=== PATIENT | female | born 1950 | race Caucasian/White ===

== ENCOUNTER 2021-03-14 06:45 | Inpatient (IN) | payer OTHER ==
[2021-03-14 07:17] VITALS: BMI 29.2
[2021-03-14] MEDS ORDERED: ACETAMINOPHEN 1000 MG/100 ML VIAL (NON FORMULARY) IVPB ONE (07:35)
[2021-03-14] MEDS ORDERED: ACETAMINOPHEN INJECTION 100 ML IVPB ONE (07:58)
[2021-03-14] MEDS ORDERED: morphine CARPU-JECT 2 MG/1 ML DISP.SYRIN IVPUSH ONE (08:06)
[2021-03-14] MEDS: SODIUM CHLORIDE 2,395 ML IV ONE ×2 (08:13→08:23)
[2021-03-14] MEDS ORDERED: morphine SULFATE 4 MG/ML VIAL ONE (08:17)
[2021-03-14 08:21] LABS: BASO % 0.3 % (0-2.0); EOS % 0.1 % (0-4.5); HEMATOCRIT 36.1 % (32.4-45.2); HEMOGLOBIN 12.3 GM/dL (10.7-15.3); LYMPH % 19.8 % (8-40); MCHC 34.1 g/dl (32.0-36.0); MEAN CELL VOLUME 93.8 fl (80-96); MONO % 10.3 % (3.8-10.2); NEUT % 69.5 % (42.8-82.8); PLATELET COUNT 278 K/MM3 (134-434); RBC 3.85 M/mm3 (3.60-5.2); RDW 15.2 % (11.6-15.6); WHITE BLOOD COUNT 7.7 K/mm3 (4.0-10.0)
[2021-03-14] MEDS ORDERED: SODIUM CHLORIDE 1,000 ML IV STA (08:21)
[2021-03-14 08:31] LABS: INR 1.19 (0.83-1.09); PROTHROMBIN TIME (PATIENT) 14.6 SEC (9.7-13.0)
[2021-03-14 08:34] LABS: ACTIVATED PTT 25.3 SECONDS (25.2-36.5)
[2021-03-14 08:45] LABS: ALBUMIN 2.7 g/dl (3.4-5.0); BLOOD UREA NITROGEN 17.5 mg/dL (7-18); CALCIUM 8.5 mg/dL (8.5-10.1)
[2021-03-14 08:49] LABS: CREATININE 0.6 mg/dL (0.55-1.3)
[2021-03-14 08:51] LABS: TOT PROT 10.4 g/dl (6.4-8.2)
[2021-03-14] MEDS ORDERED: MORPHINE SULFATE 2 MG/ML VIAL IVPUSH PRN (14:07)
[2021-03-14] MEDS: ACETAMINOPHEN 1000 MG/100 ML VIAL (NON FORMULARY) IVPB PRN ×2 (16:18→22:31)
[2021-03-14] MEDS ORDERED: AZTREONAM 1 GM in DEXTROSE 5%-WATER - 50 ML IVPB ONE (23:45)
[2021-03-15] MEDS ORDERED: AZTREONAM 1 GM VIAL (RESTRICTED TO ID) ONE ×3 (00:32→17:14)
[2021-03-15] MEDS ORDERED: DEXTROSE 5%-WATER - 50 ML IVPB ONE ×3 (00:33→17:14)
[2021-03-15 07:09] LABS: BASO % 0.4 % (0-2.0); EOS % 0.6 % (0-4.5); HEMATOCRIT 32.7 % (32.4-45.2); HEMOGLOBIN 11.1 GM/dL (10.7-15.3); LYMPH % 24.8 % (8-40); MCH 32.2 pg (25.7-33.7); MCHC 34.1 g/dl (32.0-36.0); MEAN CELL VOLUME 94.4 fl (80-96); MEAN PLT VOLUME 8.6 fl (7.5-11.1); MONO % 9.3 % (3.8-10.2); NEUT % 64.9 % (42.8-82.8); PLATELET COUNT 213 K/MM3 (134-434); RBC 3.46 M/mm3 (3.60-5.2); RDW 14.9 % (11.6-15.6); WHITE BLOOD COUNT 4.8 K/mm3 (4.0-10.0)
[2021-03-15 07:45] LABS: ALBUMIN 2.5 g/dl (3.4-5.0); BLOOD UREA NITROGEN 16.8 mg/dL (7-18); CALCIUM 7.9 mg/dL (8.5-10.1); MAGNESIUM 1.8 mg/dL (1.8-2.4)
[2021-03-15 07:46] LABS: URIC ACID 3.9 mg/dL (2.6-7.2)
[2021-03-15 07:49] LABS: BILIRUBIN,TOTAL 0.5 mg/dL (0.2-1); CREATININE 0.4 mg/dL (0.55-1.3); PHOSPHOROUS 3.4 mg/dL (2.5-4.9); TOT PROT 8.5 g/dl (6.4-8.2)
[2021-03-15] MEDS: ACETAMINOPHEN 1000 MG/100 ML VIAL (NON FORMULARY) IVPB PRN (09:13)
[2021-03-15] MEDS: ENOXAPARIN NA (PORCINE) 40 MG/0.4 ML DISP.SYRIN SQ SCH (09:13)
[2021-03-15] MEDS: LEVOTHYROXINE NA 112 MCG TABLET (FP) PO SCH (09:13)
[2021-03-15] MEDS: AZTREONAM 1 GM in DEXTROSE 5%-WATER - 50 ML IVPB SCH ×2 (12:20→17:17)
[2021-03-15] MEDS: metoPROLOL SUCCINATE 25 MG TAB.SR.24H (FP) PO SCH (14:20)
[2021-03-15] MEDS: ASPIRIN COATED 81 MG TABLET.EC PO SCH (14:20)
[2021-03-15] MEDS: morphine SULFATE 4 MG/ML VIAL IVPUSH PRN ×2 (17:18→21:35)
[2021-03-15] MEDS: ROSUVASTATIN CA 20 MG TABLET (FP) PO SCH (21:03)
[2021-03-16] MEDS ORDERED: ACETAMINOPHEN 325 MG TABLET (FP) PO ONE (01:06)
[2021-03-16] MEDS ORDERED: DEXTROSE 5%-WATER - 50 ML IVPB ONE ×2 (01:12→18:18)
[2021-03-16] MEDS ORDERED: AZTREONAM 1 GM VIAL (RESTRICTED TO ID) ONE ×2 (01:12→18:17)
[2021-03-16] MEDS: AZTREONAM 1 GM in DEXTROSE 5%-WATER - 50 ML IVPB SCH ×3 (01:19→18:20)
[2021-03-16] MEDS: LEVOTHYROXINE NA 112 MCG TABLET (FP) PO SCH (05:59)
[2021-03-16 07:31] LABS: HEMATOCRIT 32.1 % (32.4-45.2); HEMOGLOBIN 10.9 GM/dL (10.7-15.3); MEAN CELL VOLUME 94.1 fl (80-96); MEAN PLT VOLUME 8.1 fl (7.5-11.1); PLATELET COUNT 194 K/MM3 (134-434); RBC 3.41 M/mm3 (3.60-5.2); RDW 14.8 % (11.6-15.6)
[2021-03-16 07:58] LABS: CALCIUM 7.6 mg/dL (8.5-10.1)
[2021-03-16 07:59] LABS: ALBUMIN 2.4 g/dl (3.4-5.0); BLOOD UREA NITROGEN 18.6 mg/dL (7-18)
[2021-03-16 08:02] LABS: CREATININE 0.5 mg/dL (0.55-1.3)
[2021-03-16 08:03] LABS: BILIRUBIN,TOTAL 0.3 mg/dL (0.2-1); TOT PROT 8.4 g/dl (6.4-8.2)
[2021-03-16 08:07] LABS: MYOGLOBIN SERUM 22 ng/mL (25-58)
[2021-03-16] MEDS: ASPIRIN COATED 81 MG TABLET.EC PO SCH (10:15)
[2021-03-16] MEDS: morphine SULFATE 4 MG/ML VIAL IVPUSH PRN (10:15)
[2021-03-16] MEDS: metoPROLOL SUCCINATE 25 MG TAB.SR.24H (FP) PO SCH (10:15)
[2021-03-16] MEDS: ENOXAPARIN NA (PORCINE) 40 MG/0.4 ML DISP.SYRIN SQ SCH (10:42)
[2021-03-16] MEDS ORDERED: LIDOCAINE HCL 1%, 10 MG/ML (50 mL VIAL) SQ ONE (14:45)
[2021-03-16] MEDS ORDERED: methylPREDNISolone ACET (DEPO) 40 MG/1 ML VIAL IM ONE (15:00)
[2021-03-16] MEDS ORDERED: INDOMETHACIN 50 MG CAPSULE PO ONE (15:40)
[2021-03-16] MEDS: ROSUVASTATIN CA 20 MG TABLET (FP) PO SCH (21:14)
[2021-03-17] MEDS ORDERED: AZTREONAM 1 GM VIAL (RESTRICTED TO ID) ONE ×2 (00:10→09:12)
[2021-03-17] MEDS ORDERED: DEXTROSE 5%-WATER - 50 ML IVPB ONE ×2 (00:12→09:12)
[2021-03-17] MEDS: AZTREONAM 1 GM in DEXTROSE 5%-WATER - 50 ML IVPB SCH ×2 (01:28→09:30)
[2021-03-17] MEDS: LEVOTHYROXINE NA 112 MCG TABLET (FP) PO SCH (07:10)
[2021-03-17 07:38] LABS: ALBUMIN 2.7 g/dl (3.4-5.0); CALCIUM 8.5 mg/dL (8.5-10.1)
[2021-03-17 07:39] LABS: BLOOD UREA NITROGEN 13.3 mg/dL (7-18)
[2021-03-17 07:42] LABS: CREATININE 0.5 mg/dL (0.55-1.3)
[2021-03-17 07:43] LABS: BILIRUBIN,TOTAL 0.2 mg/dL (0.2-1); TOT PROT 9.5 g/dl (6.4-8.2)
[2021-03-17] MEDS: metoPROLOL SUCCINATE 25 MG TAB.SR.24H (FP) PO SCH (09:30)
[2021-03-17] MEDS: ASPIRIN COATED 81 MG TABLET.EC PO SCH (09:30)
[2021-03-17] MEDS: ENOXAPARIN NA (PORCINE) 40 MG/0.4 ML DISP.SYRIN SQ SCH (09:31)
[2021-03-17] MEDS: morphine SULFATE 4 MG/ML VIAL IVPUSH PRN (09:31)
[2021-03-17] MEDS ORDERED: REGADENOSON 0.4 MG/5 ML PRE-FILLED SYRINGE IVPUSH ONE (12:15)
[2021-03-17] MEDS: ROSUVASTATIN CA 20 MG TABLET (FP) PO SCH (22:28)
[2021-03-18 02:03] LABS: BODY FLUID MONOCYTE 6 %
[2021-03-18 02:12] LABS: CRYSTALS,SYNOVIAL FLUID NEGATIVE
[2021-03-18] MEDS: morphine SULFATE 4 MG/ML VIAL IVPUSH PRN ×2 (03:47→21:07)
[2021-03-18] MEDS: LEVOTHYROXINE NA 112 MCG TABLET (FP) PO SCH (07:17)
[2021-03-18] MEDS: ASPIRIN COATED 81 MG TABLET.EC PO SCH (10:37)
[2021-03-18] MEDS: ENOXAPARIN NA (PORCINE) 40 MG/0.4 ML DISP.SYRIN SQ SCH (10:37)
[2021-03-18] MEDS: metoPROLOL SUCCINATE 25 MG TAB.SR.24H (FP) PO SCH (10:37)
[2021-03-18] MEDS: ROSUVASTATIN CA 20 MG TABLET (FP) PO SCH (21:09)
[2021-03-19] MEDS: morphine SULFATE 4 MG/ML VIAL IVPUSH PRN ×4 (02:40→21:47)
[2021-03-19] MEDS: LEVOTHYROXINE NA 112 MCG TABLET (FP) PO SCH (06:37)
[2021-03-19 07:24] LABS: BASO % 0.4 % (0-2.0); EOS % 0.4 % (0-4.5); HEMATOCRIT 32.7 % (32.4-45.2); LYMPH % 31.7 % (8-40); MCH 32.1 pg (25.7-33.7); MCHC 33.7 g/dl (32.0-36.0); MEAN CELL VOLUME 95.5 fl (80-96); MEAN PLT VOLUME 8.8 fl (7.5-11.1); MONO % 9.6 % (3.8-10.2); NEUT % 57.9 % (42.8-82.8); PLATELET COUNT 266 K/MM3 (134-434); RBC 3.43 M/mm3 (3.60-5.2); RDW 15.4 % (11.6-15.6); WHITE BLOOD COUNT 7.8 K/mm3 (4.0-10.0)
[2021-03-19 07:34] LABS: ALBUMIN 2.5 g/dl (3.4-5.0)
[2021-03-19 07:36] LABS: CREATININE 0.4 mg/dL (0.55-1.3)
[2021-03-19 07:37] LABS: BILIRUBIN,TOTAL 0.7 mg/dL (0.2-1); TOT PROT 8.7 g/dl (6.4-8.2)
[2021-03-19] MEDS: ASPIRIN COATED 81 MG TABLET.EC PO SCH (11:06)
[2021-03-19] MEDS: ENOXAPARIN NA (PORCINE) 40 MG/0.4 ML DISP.SYRIN SQ SCH (11:06)
[2021-03-19] MEDS: metoPROLOL SUCCINATE 25 MG TAB.SR.24H (FP) PO SCH (11:06)
[2021-03-19] MEDS: ROSUVASTATIN CA 20 MG TABLET (FP) PO SCH (21:08)
[2021-03-20] MEDS: LEVOTHYROXINE NA 112 MCG TABLET (FP) PO SCH (06:19)
[2021-03-20 07:36] LABS: BASO % 0.5 % (0-2.0); EOS % 0.8 % (0-4.5); HEMATOCRIT 31.9 % (32.4-45.2); HEMOGLOBIN 10.7 GM/dL (10.7-15.3); LYMPH % 29.9 % (8-40); MCH 31.6 pg (25.7-33.7); MCHC 33.6 g/dl (32.0-36.0); MEAN PLT VOLUME 8.2 fl (7.5-11.1); MONO % 10.8 % (3.8-10.2); PLATELET COUNT 264 K/MM3 (134-434); RDW 14.9 % (11.6-15.6); WHITE BLOOD COUNT 6.9 K/mm3 (4.0-10.0)
[2021-03-20 07:51] LABS: BLOOD UREA NITROGEN 16.2 mg/dL (7-18); CALCIUM 8.2 mg/dL (8.5-10.1)
[2021-03-20 07:52] LABS: ALBUMIN 2.4 g/dl (3.4-5.0)
[2021-03-20 07:55] LABS: CREATININE 0.3 mg/dL (0.55-1.3)
[2021-03-20 07:56] LABS: BILIRUBIN,TOTAL 0.6 mg/dL (0.2-1); TOT PROT 8.4 g/dl (6.4-8.2)
[2021-03-20] MEDS: ASPIRIN COATED 81 MG TABLET.EC PO SCH (10:32)
[2021-03-20] MEDS: ENOXAPARIN NA (PORCINE) 40 MG/0.4 ML DISP.SYRIN SQ SCH (10:32)
[2021-03-20] MEDS: metoPROLOL SUCCINATE 25 MG TAB.SR.24H (FP) PO SCH (10:32)
[2021-03-20] MEDS: morphine SULFATE 4 MG/ML VIAL IVPUSH PRN ×2 (15:19→21:32)
[2021-03-20] MEDS: ROSUVASTATIN CA 20 MG TABLET (FP) PO SCH (21:31)
[2021-03-21] MEDS: MORPHINE SULFATE 2 MG/ML VIAL IVPUSH PRN ×3 (01:28→21:27)
[2021-03-21] MEDS: LEVOTHYROXINE NA 112 MCG TABLET (FP) PO SCH (06:05)
[2021-03-21] MEDS: metoPROLOL SUCCINATE 25 MG TAB.SR.24H (FP) PO SCH (09:35)
[2021-03-21] MEDS: ASPIRIN COATED 81 MG TABLET.EC PO SCH (09:35)
[2021-03-21] MEDS: ENOXAPARIN NA (PORCINE) 40 MG/0.4 ML DISP.SYRIN SQ SCH (09:36)
[2021-03-21] MEDS: ROSUVASTATIN CA 20 MG TABLET (FP) PO SCH (21:26)
[2021-03-22] MEDS: MORPHINE SULFATE 2 MG/ML VIAL IVPUSH PRN ×4 (02:35→22:42)
[2021-03-22] MEDS: LEVOTHYROXINE NA 112 MCG TABLET (FP) PO SCH (07:29)
[2021-03-22] MEDS: ENOXAPARIN NA (PORCINE) 40 MG/0.4 ML DISP.SYRIN SQ SCH (09:32)
[2021-03-22] MEDS: metoPROLOL SUCCINATE 25 MG TAB.SR.24H (FP) PO SCH (09:32)
[2021-03-22] MEDS: ASPIRIN COATED 81 MG TABLET.EC PO SCH (09:32)
[2021-03-22] MEDS: VANCOMYCIN 1 GRAM (PRE-DOCKED) 1,000 MG/250 ML BAG IVPB SCH (13:28)
[2021-03-22 15:46] LABS: BASO % 0.8 % (0-2.0); EOS % 0.7 % (0-4.5); HEMOGLOBIN 10.9 GM/dL (10.7-15.3); LYMPH % 23.6 % (8-40); MCH 31.6 pg (25.7-33.7); MCHC 33.2 g/dl (32.0-36.0); MEAN CELL VOLUME 95.1 fl (80-96); MEAN PLT VOLUME 8.3 fl (7.5-11.1); MONO % 9.1 % (3.8-10.2); NEUT % 65.8 % (42.8-82.8); PLATELET COUNT 326 K/MM3 (134-434); RBC 3.47 M/mm3 (3.60-5.2); RDW 15.1 % (11.6-15.6); WHITE BLOOD COUNT 7.5 K/mm3 (4.0-10.0)
[2021-03-22 16:03] LABS: BLOOD UREA NITROGEN 14.3 mg/dL (7-18); CALCIUM 8.4 mg/dL (8.5-10.1)
[2021-03-22 16:07] LABS: CREATININE 0.5 mg/dL (0.55-1.3)
[2021-03-22] MEDS ORDERED: AZTREONAM 1 GM VIAL (RESTRICTED TO ID) ONE (16:49)
[2021-03-22] MEDS ORDERED: DEXTROSE 5%-WATER - 50 ML IVPB ONE (16:49)
[2021-03-22] MEDS: AZTREONAM 1 GM in DEXTROSE 5%-WATER - 50 ML IVPB SCH (17:13)
[2021-03-22] MEDS: ROSUVASTATIN CA 20 MG TABLET (FP) PO SCH (21:09)
[2021-03-23] MEDS ORDERED: AZTREONAM 1 GM VIAL (RESTRICTED TO ID) ONE ×3 (00:40→16:56)
[2021-03-23] MEDS ORDERED: DEXTROSE 5%-WATER - 50 ML IVPB ONE ×3 (00:40→16:56)
[2021-03-23] MEDS: VANCOMYCIN 1 GRAM (PRE-DOCKED) 1,000 MG/250 ML BAG IVPB SCH ×2 (00:47→13:36)
[2021-03-23] MEDS: AZTREONAM 1 GM in DEXTROSE 5%-WATER - 50 ML IVPB SCH ×3 (01:06→17:12)
[2021-03-23] MEDS: LEVOTHYROXINE NA 112 MCG TABLET (FP) PO SCH (06:45)
[2021-03-23 07:16] LABS: BASO % 0.5 % (0-2.0); EOS % 0.5 % (0-4.5); HEMOGLOBIN 10.7 GM/dL (10.7-15.3); LYMPH % 27.7 % (8-40); MCH 31.7 pg (25.7-33.7); MCHC 33.3 g/dl (32.0-36.0); MEAN PLT VOLUME 8.2 fl (7.5-11.1); MONO % 12.6 % (3.8-10.2); NEUT % 58.7 % (42.8-82.8); PLATELET COUNT 343 K/MM3 (134-434); RBC 3.37 M/mm3 (3.60-5.2); RDW 15.2 % (11.6-15.6); WHITE BLOOD COUNT 7.5 K/mm3 (4.0-10.0)
[2021-03-23 07:38] LABS: CALCIUM 8.6 mg/dL (8.5-10.1)
[2021-03-23 07:39] LABS: BLOOD UREA NITROGEN 15.8 mg/dL (7-18)
[2021-03-23 07:41] LABS: CREATININE 0.4 mg/dL (0.55-1.3)
[2021-03-23] MEDS ORDERED: PT OWN MED DRAWER 7, Y5N ONE (09:38)
[2021-03-23] MEDS: metoPROLOL SUCCINATE 25 MG TAB.SR.24H (FP) PO SCH (10:06)
[2021-03-23] MEDS: MORPHINE SULFATE 2 MG/ML VIAL IVPUSH PRN ×3 (10:06→22:53)
[2021-03-23] MEDS: ASPIRIN COATED 81 MG TABLET.EC PO SCH (10:06)
[2021-03-23] MEDS: ENOXAPARIN NA (PORCINE) 40 MG/0.4 ML DISP.SYRIN SQ SCH (10:06)
[2021-03-23] MEDS: FAMOTIDINE 20 MG TABLET PO SCH (15:14)
[2021-03-23] MEDS: ROSUVASTATIN CA 20 MG TABLET (FP) PO SCH (23:00)
[2021-03-24] MEDS ORDERED: AZTREONAM 1 GM VIAL (RESTRICTED TO ID) ONE ×3 (01:13→17:12)
[2021-03-24] MEDS ORDERED: DEXTROSE 5%-WATER - 50 ML IVPB ONE ×3 (01:14→17:12)
[2021-03-24] MEDS: VANCOMYCIN 1 GRAM (PRE-DOCKED) 1,000 MG/250 ML BAG IVPB SCH ×2 (01:47→13:12)
[2021-03-24] MEDS: AZTREONAM 1 GM in DEXTROSE 5%-WATER - 50 ML IVPB SCH ×3 (01:48→17:23)
[2021-03-24] MEDS: LEVOTHYROXINE NA 112 MCG TABLET (FP) PO SCH (06:24)
[2021-03-24] MEDS: MORPHINE SULFATE 2 MG/ML VIAL IVPUSH PRN ×3 (06:24→23:16)
[2021-03-24 07:25] LABS: BASO % 0.6 % (0-2.0); EOS % 0.5 % (0-4.5); HEMATOCRIT 30.6 % (32.4-45.2); HEMOGLOBIN 10.6 GM/dL (10.7-15.3); LYMPH % 24.9 % (8-40); MCH 32.4 pg (25.7-33.7); MCHC 34.7 g/dl (32.0-36.0); MEAN CELL VOLUME 93.4 fl (80-96); MEAN PLT VOLUME 7.7 fl (7.5-11.1); PLATELET COUNT 332 K/MM3 (134-434); RBC 3.28 M/mm3 (3.60-5.2); RDW 15.1 % (11.6-15.6); WHITE BLOOD COUNT 6.7 K/mm3 (4.0-10.0)
[2021-03-24 07:41] LABS: BLOOD UREA NITROGEN 15.4 mg/dL (7-18); MAGNESIUM 1.9 mg/dL (1.8-2.4)
[2021-03-24 07:45] LABS: CREATININE 0.4 mg/dL (0.55-1.3); PHOSPHOROUS 3.6 mg/dL (2.5-4.9)
[2021-03-24] MEDS: metoPROLOL SUCCINATE 25 MG TAB.SR.24H (FP) PO SCH (10:00)
[2021-03-24] MEDS: ENOXAPARIN NA (PORCINE) 40 MG/0.4 ML DISP.SYRIN SQ SCH (10:00)
[2021-03-24] MEDS: ASPIRIN COATED 81 MG TABLET.EC PO SCH (10:00)
[2021-03-24] MEDS: FAMOTIDINE 20 MG TABLET PO SCH (10:00)
[2021-03-24 12:16] LABS: ERYTHROCYTE SEDIMENTATION RATE 101 mm/hr (0-30)
[2021-03-24] MEDS: ROSUVASTATIN CA 20 MG TABLET (FP) PO SCH (22:13)
[2021-03-24] MEDS ORDERED: ACETAMINOPHEN 325 MG TABLET (FP) PO PRN (23:27)
[2021-03-25] MEDS ORDERED: DEXTROSE 5%-WATER - 50 ML IVPB ONE ×3 (00:14→16:51)
[2021-03-25] MEDS ORDERED: AZTREONAM 1 GM VIAL (RESTRICTED TO ID) ONE ×3 (00:14→16:51)
[2021-03-25] MEDS: VANCOMYCIN 1 GRAM (PRE-DOCKED) 1,000 MG/250 ML BAG IVPB SCH ×2 (00:49→12:12)
[2021-03-25] MEDS: AZTREONAM 1 GM in DEXTROSE 5%-WATER - 50 ML IVPB SCH ×3 (01:08→17:34)
[2021-03-25] MEDS: MORPHINE SULFATE 2 MG/ML VIAL IVPUSH PRN ×2 (06:19→12:10)
[2021-03-25] MEDS: LEVOTHYROXINE NA 112 MCG TABLET (FP) PO SCH (06:21)
[2021-03-25 07:07] LABS: BASO % 0.4 % (0-2.0); EOS % 0.5 % (0-4.5); HEMATOCRIT 33.2 % (32.4-45.2); HEMOGLOBIN 11.4 GM/dL (10.7-15.3); LYMPH % 31.8 % (8-40); MCH 32.4 pg (25.7-33.7); MCHC 34.4 g/dl (32.0-36.0); MEAN CELL VOLUME 94.1 fl (80-96); MEAN PLT VOLUME 7.4 fl (7.5-11.1); MONO % 13.8 % (3.8-10.2); NEUT % 53.5 % (42.8-82.8); PLATELET COUNT 344 K/MM3 (134-434); RBC 3.53 M/mm3 (3.60-5.2); WHITE BLOOD COUNT 6.1 K/mm3 (4.0-10.0)
[2021-03-25 07:30] LABS: ALBUMIN 2.5 g/dl (3.4-5.0); BLOOD UREA NITROGEN 16.5 mg/dL (7-18); CALCIUM 8.2 mg/dL (8.5-10.1)
[2021-03-25 07:33] LABS: CREATININE 0.5 mg/dL (0.55-1.3)
[2021-03-25 07:35] LABS: BILIRUBIN,TOTAL 0.6 mg/dL (0.2-1)
[2021-03-25] MEDS: ASPIRIN COATED 81 MG TABLET.EC PO SCH (10:49)
[2021-03-25] MEDS: FAMOTIDINE 20 MG TABLET PO SCH (10:50)
[2021-03-25] MEDS: ENOXAPARIN NA (PORCINE) 40 MG/0.4 ML DISP.SYRIN SQ SCH (10:50)
[2021-03-25] MEDS: metoPROLOL SUCCINATE 25 MG TAB.SR.24H (FP) PO SCH (10:50)
[2021-03-25] MEDS ORDERED: MORPHINE SULFATE 2 MG/ML VIAL IVPUSH ONE (21:07)
[2021-03-25] MEDS ORDERED: ACETAMINOPHEN 1000 MG/100 ML VIAL (NON FORMULARY) IVPB ONE (21:08)
[2021-03-25] MEDS: ROSUVASTATIN CA 20 MG TABLET (FP) PO SCH (21:26)
[2021-03-26] MEDS ORDERED: AZTREONAM 1 GM VIAL (RESTRICTED TO ID) ONE ×3 (00:45→15:23)
[2021-03-26] MEDS ORDERED: DEXTROSE 5%-WATER - 50 ML IVPB ONE ×3 (00:46→15:23)
[2021-03-26] MEDS: VANCOMYCIN 1 GRAM (PRE-DOCKED) 1,000 MG/250 ML BAG IVPB SCH (00:54)
[2021-03-26] MEDS: AZTREONAM 1 GM in DEXTROSE 5%-WATER - 50 ML IVPB SCH ×3 (01:35→17:32)
[2021-03-26] MEDS: LEVOTHYROXINE NA 112 MCG TABLET (FP) PO SCH (06:03)
[2021-03-26 07:13] LABS: BASO % 0.5 % (0-2.0); EOS % 0.5 % (0-4.5); HEMATOCRIT 33.3 % (32.4-45.2); HEMOGLOBIN 11.5 GM/dL (10.7-15.3); MCH 32.6 pg (25.7-33.7); MCHC 34.4 g/dl (32.0-36.0); MEAN CELL VOLUME 94.7 fl (80-96); MEAN PLT VOLUME 7.7 fl (7.5-11.1); MONO % 12.1 % (3.8-10.2); NEUT % 62.9 % (42.8-82.8); PLATELET COUNT 333 K/MM3 (134-434); RBC 3.51 M/mm3 (3.60-5.2); RDW 15.3 % (11.6-15.6); WHITE BLOOD COUNT 4.9 K/mm3 (4.0-10.0)
[2021-03-26 07:38] LABS: ALBUMIN 2.4 g/dl (3.4-5.0); BLOOD UREA NITROGEN 13.4 mg/dL (7-18)
[2021-03-26 07:41] LABS: BILIRUBIN,TOTAL 0.4 mg/dL (0.2-1); CREATININE 0.5 mg/dL (0.55-1.3)
[2021-03-26 07:43] LABS: TOT PROT 8.8 g/dl (6.4-8.2)
[2021-03-26] MEDS ORDERED: ACETAMINOPHEN 1000 MG/100 ML VIAL (NON FORMULARY) IVPB PRN (09:30)
[2021-03-26] MEDS: FAMOTIDINE 20 MG TABLET PO SCH (11:00)
[2021-03-26] MEDS: metoPROLOL SUCCINATE 25 MG TAB.SR.24H (FP) PO SCH (11:00)
[2021-03-26] MEDS: ENOXAPARIN NA (PORCINE) 40 MG/0.4 ML DISP.SYRIN SQ SCH (11:01)
[2021-03-26] MEDS: MORPHINE SULFATE 2 MG/ML VIAL IVPUSH PRN ×2 (11:30→17:32)
[2021-03-26] MEDS ORDERED: VANCOMYCIN 1 GRAM (PRE-DOCKED) 1,000 MG/250 ML BAG IVPB SCH (12:00)
[2021-03-26] MEDS: ROSUVASTATIN CA 20 MG TABLET (FP) PO SCH (21:27)
[2021-03-27] MEDS: AZTREONAM 1 GM in DEXTROSE 5%-WATER - 50 ML IVPB SCH ×3 (04:00→17:00)
[2021-03-27] MEDS ORDERED: DEXTROSE 5%-WATER - 50 ML IVPB ONE ×3 (04:59→16:58)
[2021-03-27] MEDS ORDERED: AZTREONAM 1 GM VIAL (RESTRICTED TO ID) ONE ×3 (04:59→16:58)
[2021-03-27] MEDS: LEVOTHYROXINE NA 112 MCG TABLET (FP) PO SCH (06:16)
[2021-03-27] MEDS: MORPHINE SULFATE 2 MG/ML VIAL IVPUSH PRN ×3 (06:19→19:56)
[2021-03-27] MEDS: metoPROLOL SUCCINATE 25 MG TAB.SR.24H (FP) PO SCH (09:13)
[2021-03-27] MEDS: FAMOTIDINE 20 MG TABLET PO SCH (09:14)
[2021-03-27] MEDS: ENOXAPARIN NA (PORCINE) 40 MG/0.4 ML DISP.SYRIN SQ SCH (09:14)
[2021-03-27 12:07] LABS: EPI CELLS 16 /uL (0-25.1); HYALINE CASTS 1 /uL (0-3.1); URINE APPEARANCE CLEAR; URINE BACTERIA 9 /uL (0-1359); URINE BILIRUBIN NEGATIVE (NEGATIVE); URINE COLOR YELLOW; URINE GLUCOSE (UA) NEGATIVE (NEGATIVE); URINE KETONE NEGATIVE (NEGATIVE); URINE LEUK ESTERASE NEGATIVE (NEGATIVE); URINE NITRITE NEGATIVE (NEGATIVE); URINE PROTEIN NEGATIVE (NEGATIVE); URINE RBC 37 /uL (0-23.9); URINE WBC 3 /uL (0-25.8)
[2021-03-27] MEDS: VANCOMYCIN 1 GRAM (PRE-DOCKED) 1,000 MG/250 ML BAG IVPB SCH (14:34)
[2021-03-27] MEDS: ROSUVASTATIN CA 20 MG TABLET (FP) PO SCH (22:05)
[2021-03-28] MEDS ORDERED: DEXTROSE 5%-WATER - 50 ML IVPB ONE ×2 (02:40→09:38)
[2021-03-28] MEDS ORDERED: AZTREONAM 1 GM VIAL (RESTRICTED TO ID) ONE ×2 (02:40→09:38)
[2021-03-28] MEDS: AZTREONAM 1 GM in DEXTROSE 5%-WATER - 50 ML IVPB SCH ×3 (03:02→16:59)
[2021-03-28] MEDS: LEVOTHYROXINE NA 112 MCG TABLET (FP) PO SCH (06:02)
[2021-03-28] MEDS: FAMOTIDINE 20 MG TABLET PO SCH (09:09)
[2021-03-28] MEDS: metoPROLOL SUCCINATE 25 MG TAB.SR.24H (FP) PO SCH (09:09)
[2021-03-28] MEDS: MORPHINE SULFATE 2 MG/ML VIAL IVPUSH PRN ×3 (11:09→21:39)
[2021-03-28] MEDS ORDERED: ACETAMINOPHEN 325 MG TABLET (FP) ONE (13:14)
[2021-03-28] MEDS: VANCOMYCIN 1 GRAM (PRE-DOCKED) 1,000 MG/250 ML BAG IVPB SCH (15:48)
[2021-03-28] MEDS: ROSUVASTATIN CA 20 MG TABLET (FP) PO SCH (21:38)
[2021-03-29] MEDS: AZTREONAM 1 GM in DEXTROSE 5%-WATER - 50 ML IVPB SCH ×3 (03:00→19:32)
[2021-03-29] MEDS ORDERED: AZTREONAM 1 GM VIAL (RESTRICTED TO ID) ONE ×3 (04:24→18:17)
[2021-03-29] MEDS ORDERED: DEXTROSE 5%-WATER - 50 ML IVPB ONE ×3 (04:25→18:17)
[2021-03-29] MEDS: MORPHINE SULFATE 2 MG/ML VIAL IVPUSH PRN (06:32)
[2021-03-29] MEDS: LEVOTHYROXINE NA 112 MCG TABLET (FP) PO SCH (06:32)
[2021-03-29 07:40] LABS: HEMATOCRIT 32.7 % (32.4-45.2); MCH 31.9 pg (25.7-33.7); MCHC 33.7 g/dl (32.0-36.0); MEAN CELL VOLUME 94.5 fl (80-96); PLATELET COUNT 326 K/MM3 (134-434); RBC 3.46 M/mm3 (3.60-5.2); WHITE BLOOD COUNT 5.9 K/mm3 (4.0-10.0)
[2021-03-29 08:06] LABS: ALBUMIN 2.3 g/dl (3.4-5.0); BLOOD UREA NITROGEN 17.1 mg/dL (7-18); CALCIUM 8.4 mg/dL (8.5-10.1)
[2021-03-29 08:08] LABS: CREATININE 0.4 mg/dL (0.55-1.3)
[2021-03-29 08:10] LABS: BILIRUBIN,TOTAL 0.3 mg/dL (0.2-1); TOT PROT 8.5 g/dl (6.4-8.2)
[2021-03-29] MEDS: FAMOTIDINE 20 MG TABLET PO SCH (09:13)
[2021-03-29] MEDS: ASPIRIN COATED 81 MG TABLET.EC PO SCH (09:13)
[2021-03-29] MEDS: metoPROLOL SUCCINATE 25 MG TAB.SR.24H (FP) PO SCH (09:13)
[2021-03-29] MEDS: VANCOMYCIN 1 GRAM (PRE-DOCKED) 1,000 MG/250 ML BAG IVPB SCH (17:09)
[2021-03-29] MEDS: ROSUVASTATIN CA 20 MG TABLET (FP) PO SCH (21:08)
[2021-03-30] MEDS ORDERED: AZTREONAM 1 GM VIAL (RESTRICTED TO ID) ONE ×3 (02:37→18:16)
[2021-03-30] MEDS: AZTREONAM 1 GM in DEXTROSE 5%-WATER - 50 ML IVPB SCH ×3 (02:39→18:17)
[2021-03-30] MEDS ORDERED: morphine SULFATE 4 MG/ML VIAL IVPUSH ONE (05:53)
[2021-03-30] MEDS: LEVOTHYROXINE NA 112 MCG TABLET (FP) PO SCH (06:05)
[2021-03-30 07:08] LABS: BASO % 0.7 % (0-2.0); EOS % 1.9 % (0-4.5); HEMATOCRIT 32.4 % (32.4-45.2); HEMOGLOBIN 10.9 GM/dL (10.7-15.3); LYMPH % 31.4 % (8-40); MCH 31.8 pg (25.7-33.7); MCHC 33.8 g/dl (32.0-36.0); MEAN CELL VOLUME 94.1 fl (80-96); MONO % 8.9 % (3.8-10.2); NEUT % 57.1 % (42.8-82.8); PLATELET COUNT 296 K/MM3 (134-434); RBC 3.44 M/mm3 (3.60-5.2); RDW 14.6 % (11.6-15.6); WHITE BLOOD COUNT 5.5 K/mm3 (4.0-10.0)
[2021-03-30 07:35] LABS: ALBUMIN 2.2 g/dl (3.4-5.0); BLOOD UREA NITROGEN 15.6 mg/dL (7-18); CALCIUM 8.2 mg/dL (8.5-10.1)
[2021-03-30 07:38] LABS: CREATININE 0.3 mg/dL (0.55-1.3)
[2021-03-30 07:40] LABS: BILIRUBIN,TOTAL 0.5 mg/dL (0.2-1); TOT PROT 8.3 g/dl (6.4-8.2)
[2021-03-30] MEDS ORDERED: DEXTROSE 5%-WATER - 50 ML IVPB ONE ×2 (09:25→18:16)
[2021-03-30] MEDS: FAMOTIDINE 20 MG TABLET PO SCH (09:26)
[2021-03-30] MEDS: ASPIRIN COATED 81 MG TABLET.EC PO SCH (09:26)
[2021-03-30] MEDS: metoPROLOL SUCCINATE 25 MG TAB.SR.24H (FP) PO SCH (09:26)
[2021-03-30] MEDS: oxyCODONE HCL 10 MG SUSTAINED ACTING TABLET PO PRN (13:32)
[2021-03-30] MEDS: VANCOMYCIN 1 GRAM (PRE-DOCKED) 1,000 MG/250 ML BAG IVPB SCH (13:32)
[2021-03-30] MEDS ORDERED: ACETAMINOPHEN 1000 MG/100 ML VIAL (NON FORMULARY) IVPB ONE (21:46)
[2021-03-30] MEDS: ROSUVASTATIN CA 20 MG TABLET (FP) PO SCH (21:54)
[2021-03-31] MEDS ORDERED: AZTREONAM 1 GM VIAL (RESTRICTED TO ID) ONE ×2 (01:27→11:02)
[2021-03-31] MEDS ORDERED: DEXTROSE 5%-WATER - 50 ML IVPB ONE ×2 (01:28→11:02)
[2021-03-31] MEDS: AZTREONAM 1 GM in DEXTROSE 5%-WATER - 50 ML IVPB SCH ×3 (01:32→17:40)
[2021-03-31] MEDS: oxyCODONE HCL 10 MG SUSTAINED ACTING TABLET PO PRN ×2 (03:22→20:24)
[2021-03-31] MEDS: LEVOTHYROXINE NA 112 MCG TABLET (FP) PO SCH (06:00)
[2021-03-31] MEDS ORDERED: ACETAMINOPHEN 1000 MG/100 ML VIAL (NON FORMULARY) IVPB ONE (06:45)
[2021-03-31 07:26] LABS: HEMATOCRIT 31.8 % (32.4-45.2); HEMOGLOBIN 10.7 GM/dL (10.7-15.3); LYMPH % 22.1 % (8-40); MCH 31.8 pg (25.7-33.7); MCHC 33.7 g/dl (32.0-36.0); MEAN CELL VOLUME 94.3 fl (80-96); MEAN PLT VOLUME 7.6 fl (7.5-11.1); MONO % 9.2 % (3.8-10.2); NEUT % 65.7 % (42.8-82.8); PLATELET COUNT 293 K/MM3 (134-434); RBC 3.37 M/mm3 (3.60-5.2); WHITE BLOOD COUNT 5.7 K/mm3 (4.0-10.0)
[2021-03-31 07:50] LABS: ANION GAP 6 MMOL/L (8-16); BLOOD UREA NITROGEN 15.4 mg/dL (7-18); CALCIUM 8.8 mg/dL (8.5-10.1); CHLORIDE 102 mmol/L (98-107); CO2 27 mmol/L (21-32); GLUCOSE,RANDOM 107 mg/dL (74-106); SODIUM 135 mmol/L (136-145)
[2021-03-31 07:54] LABS: CREATININE 0.3 mg/dL (0.55-1.3)
[2021-03-31] MEDS: FAMOTIDINE 20 MG TABLET PO SCH (09:19)
[2021-03-31] MEDS: metoPROLOL SUCCINATE 25 MG TAB.SR.24H (FP) PO SCH (09:20)
[2021-03-31] MEDS: ASPIRIN COATED 81 MG TABLET.EC PO SCH (09:20)
[2021-03-31] MEDS: VANCOMYCIN 1 GRAM (PRE-DOCKED) 1,000 MG/250 ML BAG IVPB SCH (14:14)
[2021-03-31] MEDS ORDERED: LISINOPRIL 5 MG TABLET PO ONE (18:46)
[2021-03-31] MEDS: ROSUVASTATIN CA 20 MG TABLET (FP) PO SCH (21:28)
[2021-03-31] MEDS ORDERED: MORPHINE SULFATE 2 MG/ML VIAL IVPUSH ONE (22:31)
[2021-04-01] MEDS ORDERED: DEXTROSE 5%-WATER - 50 ML IVPB ONE ×3 (00:46→16:42)
[2021-04-01] MEDS ORDERED: AZTREONAM 1 GM VIAL (RESTRICTED TO ID) ONE ×3 (00:46→16:41)
[2021-04-01] MEDS: AZTREONAM 1 GM in DEXTROSE 5%-WATER - 50 ML IVPB SCH ×3 (01:13→17:15)
[2021-04-01] MEDS: LEVOTHYROXINE NA 112 MCG TABLET (FP) PO SCH (06:03)
[2021-04-01] MEDS: metoPROLOL SUCCINATE 25 MG TAB.SR.24H (FP) PO SCH (09:13)
[2021-04-01] MEDS: ASPIRIN COATED 81 MG TABLET.EC PO SCH (09:13)
[2021-04-01] MEDS: FAMOTIDINE 20 MG TABLET PO SCH (09:13)
[2021-04-01] MEDS: LISINOPRIL 5 MG TABLET PO SCH (09:19)
[2021-04-01] MEDS: VANCOMYCIN 1 GRAM (PRE-DOCKED) 1,000 MG/250 ML BAG IVPB SCH (13:59)
[2021-04-01] MEDS: oxyCODONE HCL 10 MG SUSTAINED ACTING TABLET PO PRN (18:45)
[2021-04-01] MEDS ORDERED: DOCUSATE SODIUM 100 MG CAPSULE (FP) PO ONE (19:58)
[2021-04-01] MEDS ORDERED: SENNOSIDES 8.6MG TABLET (FP) PO ONE (22:00)
[2021-04-01] MEDS: ROSUVASTATIN CA 20 MG TABLET (FP) PO SCH (22:05)
[2021-04-01] MEDS ORDERED: morphine SULFATE 4 MG/ML VIAL IVPUSH ONE (22:09)
[2021-04-02] MEDS ORDERED: DEXTROSE 5%-WATER - 50 ML IVPB ONE ×3 (01:06→17:59)
[2021-04-02] MEDS ORDERED: AZTREONAM 1 GM VIAL (RESTRICTED TO ID) ONE ×3 (01:06→17:59)
[2021-04-02] MEDS: AZTREONAM 1 GM in DEXTROSE 5%-WATER - 50 ML IVPB SCH ×3 (01:20→18:01)
[2021-04-02] MEDS ORDERED: ACETAMINOPHEN 1000 MG/100 ML VIAL (NON FORMULARY) IVPB ONE (01:26)
[2021-04-02] MEDS: LEVOTHYROXINE NA 112 MCG TABLET (FP) PO SCH (06:13)
[2021-04-02] MEDS: ASPIRIN COATED 81 MG TABLET.EC PO SCH (09:12)
[2021-04-02] MEDS: FAMOTIDINE 20 MG TABLET PO SCH (09:12)
[2021-04-02] MEDS: LISINOPRIL 5 MG TABLET PO SCH (09:13)
[2021-04-02] MEDS: metoPROLOL SUCCINATE 25 MG TAB.SR.24H (FP) PO SCH (09:13)
[2021-04-02] MEDS: oxyCODONE HCL 10 MG SUSTAINED ACTING TABLET PO PRN (09:43)
[2021-04-02] MEDS: VANCOMYCIN 1 GRAM (PRE-DOCKED) 1,000 MG/250 ML BAG IVPB SCH (13:53)
[2021-04-02] MEDS ORDERED: ACETAMINOPHEN 325 MG TABLET (FP) ONE (15:21)
[2021-04-02] MEDS: morphine SULFATE 4 MG/ML VIAL IVPUSH PRN (22:06)
[2021-04-02] MEDS: ROSUVASTATIN CA 20 MG TABLET (FP) PO SCH (22:07)
[2021-04-03] MEDS: morphine SULFATE 4 MG/ML VIAL IVPUSH PRN ×2 (06:18→16:04)
[2021-04-03] MEDS: LEVOTHYROXINE NA 112 MCG TABLET (FP) PO SCH (06:18)
[2021-04-03] MEDS: metoPROLOL SUCCINATE 25 MG TAB.SR.24H (FP) PO SCH (09:18)
[2021-04-03] MEDS: LISINOPRIL 5 MG TABLET PO SCH (09:18)
[2021-04-03] MEDS: ASPIRIN COATED 81 MG TABLET.EC PO SCH (09:19)
[2021-04-03] MEDS: FAMOTIDINE 20 MG TABLET PO SCH (09:19)
[2021-04-03 14:03] VITALS: BP 109/51; PULSE 67; TEMP 98.2
== END 2021-04-03 19:34 | disposition short-term general hospital (02) | DRG 342 ==
LOC: JER 06:45 → INTOOBSV 12:06 → JERBED 12:06 → OBSVTOIN 13:39 → J4W 16:07 → OBSVTOIN 03-22 14:38 → INTOOBSV 03-22 14:38
PROVIDERS: ATTEND Internal Medicine
PROC: 0S9D3ZZ Drainage of Left Knee Joint, Percutaneous Approach (ICD-10-PCS; principal; 2021-03-29)
DX: S83.207A Unspecified tear of unspecified meniscus, current injury, left knee, initial encounter (principal); D86.9 Sarcoidosis, unspecified; M25.462 Effusion, left knee; E78.5 Hyperlipidemia, unspecified; E87.1 Hypo-osmolality and hyponatremia; E03.9 Hypothyroidism, unspecified; H40.9 Unspecified glaucoma; R50.9 Fever, unspecified; M81.0 Age-related osteoporosis without current pathological fracture; J98.11 Atelectasis; I24.8 Other forms of acute ischemic heart disease; N39.0 Urinary tract infection, site not specified; B95.2 Enterococcus as the cause of diseases classified elsewhere; M17.12 Unilateral primary osteoarthritis, left knee; H54.40 Blindness, one eye, unspecified eye; E66.3 Overweight; Z68.29 Body mass index [BMI] 29.0-29.9, adult; E87.5 Hyperkalemia; G89.29 Other chronic pain; H20.9 Unspecified iridocyclitis; M11.262 Other chondrocalcinosis, left knee; R94.39 Abnormal result of other cardiovascular function study
CPT/HCPCS: 20610; 36415; 71045-TC-FY; 73523-TC-FY; 73552-TC-LT-FY; 73560-TC-LT-FY; 73723-LT; 75635-TC; 76882-TC-RT-FY; 78452-TC; 80048; 80053; 80061; 81003; 82085; 82550; 82553; 82962; 83036; 83605; 83721; 83735; 83874; 84100; 84443; 84484; 84550; 85025; 85027; 85610; 85651; 85730; 86038; 86140; 86618; 87040; 87070; 87075; 87086; 87102; 87116; 87186; 87205; 87206; 87210; 87491; 87591; 89060; 93005; 93010; 93017; 93306-TC; 93970-TC; 97116-GP; 97161-GP; 99285-25; A9502; C9803; G0378; G0480; J0131; J2785; Q9967; U0003; U0005

== ENCOUNTER 2021-05-26 18:33 | Emergency (ER) | payer OTHER ==
[2021-05-26] MEDS ORDERED: SODIUM CHLORIDE 1,000 ML IV ONE (18:49)
[2021-05-26 19:20] LABS: BASO % 0.5 % (0-2.0); EOS % 1.3 % (0-4.5); HEMOGLOBIN 8.9 GM/dL (10.7-15.3); LYMPH % 20.6 % (8-40); MCH 30.4 pg (25.7-33.7); MCHC 34.1 g/dl (32.0-36.0); MEAN PLT VOLUME 7.4 fl (7.5-11.1); MONO % 9.2 % (3.8-10.2); NEUT % 68.4 % (42.8-82.8); PLATELET COUNT 215 10^3/uL (134-434); RBC 2.92 M/mm3 (3.60-5.2)
[2021-05-26 19:28] LABS: WHITE BLOOD COUNT 1.8 K/mm3 (4.0-10.0)
[2021-05-26] MEDS ORDERED: GLUCAGON 1 MG KIT IVPUSH ONE (19:36)
[2021-05-26 19:39] LABS: CHLORIDE 88 mmol/L (98-107); SODIUM 125 mmol/L (136-145)
[2021-05-26 19:41] LABS: INR 1.08 (0.83-1.09); PROTHROMBIN TIME (PATIENT) 13.2 SEC (9.7-13.0)
[2021-05-26] MEDS ORDERED: GLUCAGON 1 MG KIT ONE (19:41)
[2021-05-26 19:42] LABS: ALBUMIN 2.6 g/dl (3.4-5.0); CO2 17 mmol/L (21-32); GLUCOSE,RANDOM 99 mg/dL (74-106)
[2021-05-26 19:44] LABS: ACTIVATED PTT 30.2 SECONDS (25.2-36.5)
[2021-05-26 19:45] LABS: SGOT/AST 197 U/L (15-37); SGPT/ALT 86 U/L (13-61)
[2021-05-26 19:46] LABS: BILIRUBIN,TOTAL 0.3 mg/dL (0.2-1)
[2021-05-26 19:47] LABS: TOT PROT 9.1 g/dl (6.4-8.2)
[2021-05-26 19:48] LABS: ALK PHOS 167 U/L (45-117)
[2021-05-26 19:56] LABS: ANION GAP 19 MMOL/L (8-16); BLOOD UREA NITROGEN 108.5 mg/dL (7-18); CALCIUM 6.1 mg/dL (8.5-10.1)
[2021-05-26] MEDS ORDERED: CALCIUM GLUCONATE 10% - 1,000 MG/10 ML VIAL IVPB ONE (20:10)
[2021-05-26] MEDS ORDERED: INSULIN REGULAR HUMAN 100 UNITS/ML *VIAL IVPUSH ONE (20:11)
[2021-05-26] MEDS ORDERED: DEXTROSE 50%-WATER - 25 GM/50 ML VIAL IVPUSH ONE (20:11)
[2021-05-26] MEDS ORDERED: INSULIN REGULAR HUMAN 100 UNITS/ML *VIAL ONE (20:27)
[2021-05-26] MEDS ORDERED: CALCIUM CHLORIDE 1 GM/10 ML *DISP.SYRIN ONE (20:27)
[2021-05-26] MEDS ORDERED: AMIODARONE HCL 150 MG/3 ML VIAL ONE (20:47)
[2021-05-26 21:17] LABS: ANISOCYTOSIS 3+; MACROCYTOSIS 2+; PLATELET ESTIMATE NORMAL; TARGET CELLS 1+
[2021-05-26 22:27] VITALS: BP 0/0; PULSE 0
== END 2021-05-27 00:14 | disposition expired ==
LOC: JER 18:33
PROC: 3E033GC Introduction of Other Therapeutic Substance into Peripheral Vein, Percutaneous Approach (ICD-10-PCS; principal; 2021-05-26)
PROC: 3E033GC Introduction of Other Therapeutic Substance into Peripheral Vein, Percutaneous Approach (ICD-10-PCS; 2021-05-26)
PROC: 3E033GC Introduction of Other Therapeutic Substance into Peripheral Vein, Percutaneous Approach (ICD-10-PCS; 2021-05-26)
PROC: 3E013VG Introduction of Insulin into Subcutaneous Tissue, Percutaneous Approach (ICD-10-PCS; 2021-05-26)
DX: I46.9 Cardiac arrest, cause unspecified (principal)
CPT/HCPCS: 36415; 70450-TC; 71045-TC-FY; 71250-TC; 80053; 82962; 83605; 84484; 85025; 85610; 85730; 86850; 86900; 86901; 87040; 93005; 93010; 99291; 99292